=== PATIENT | male | born 1965 | race Caucasian/White ===

== ENCOUNTER 2024-07-11 03:43 | Inpatient (IN) | payer OTHER ==
[~2024-07-11] VITALS: Ht 193 cm; Wt 99.3 kg
[2024-07-11 04:42] LABS: Basophils # (auto) 0.1 10 ^3/uL (0-0.2); Basophils % (auto) 0.5 % (0.0-2.0); Eosinophils # (auto) 0 10 ^3/uL (0-0.8); Hematocrit 40.5 % (41.0-53.0); Hemoglobin 13.8 g/dL (13.5-17.5); Lymphocytes # (auto) 0.8 10 ^3/uL (0.4-5.4); Lymphocytes % (auto) 5.8 % (10.0-50.0); Mean Corpuscular Hemoglobin 31.5 pg (28.0-32.0); Mean Corpuscular Hgb Conc. 34.2 g/dL (32.0-36.0); Mean Corpuscular Volume 92.3 fL (80.0-100.0); Monocytes # (auto) 0.5 10 ^3/uL (0-1.3); Monocytes % (auto) 3.8 % (0.0-12.0); Neutrophils # (auto) 12.9 10 ^3/uL (1.6-8.6); Neutrophils % (auto) 89.9 % (37.0-80.0); Platelet Count (auto) 189 10^3/uL (140-450); Red Blood Cells 4.39 10^6/uL (4.5-5.90); Red Cell Distribution Width 13.1 % (11.8-14.3); White Blood Cell 14.4 10^3/uL (4.4-10.8)
[2024-07-11 04:51] LABS: Alanine Aminotransferase 23 U/L (7-40); Albumin 4.5 g/dL (3.2-4.8); Alkaline Phosphatase 67 U/L (46-116); Anion Gap 8 (5-15); Aspartate Aminotransferase 16 U/L (13-40); BUN/Creatinine Ratio 11.7 (10.0-20.0); Blood Urea Nitrogen 16 mg/dL (9-23); Calcium 10.1 mg/dL (8.7-10.4); Carbon Dioxide 27 mmol/L (20-31); Chloride 105 mmol/L (98-107); Lipase 30 U/L (12-53); Sodium 140 mmol/L (136-145); Total Protein 7.3 g/dL (5.7-8.2)
[2024-07-11 04:52] LABS: Bilirubin, Total 0.4 mg/dL (0.2-1.0); Glucose 151 mg/dL (74-106)
--- NOTE | 2024-07-11 06:27 | ED.PDOC ---
History of Present Illness HPI Comments 59 y/o M presents with spouse for c/o non-radiating, left-sided abdominal pain, nausea, and vomiting, today. Patient endorses on sudden and unprovoked onset of symptoms at around 2300, last night, that have been ongoing since. He comments on pain being sharp in quality and having no significant medical, surgical, or family history along with any recent ailments, sick contact, travel, or spoiled food intake. Patient denies any hematemesis, diarrhea, constipation, urinary symptoms, fever, chills, or other associated symptoms or modifiers at this time. Chief Complaint: Abdominal Pain Time Seen by MD: 06:15 Reviewed Notes: Nurses Notes, Medications, Allergies Allergies: Coded Allergies: NO KNOWN ALLERGIES (Unverified , 07/11/24) Information Source: Patient Mode of Arrival: Ambulatory Severity: Moderate Timing: Hours Duration: Since onset Prehospital treatment: None Past Medical History PAST MEDICAL HISTORY: Denies Surgical History: Denies all surgeries Family History Family History: Unknown Social History Smoker: Non-Smoker Alcohol: Denies ETOH Use Drugs: Denies Drug Use Lives In: Home All Other Systems: Reviewed and Negative (Comprehensive systems review obtained and negative except for what is stated in the HPI.) Physical Exam General Appearance: Moderate Distress HEENT: Normal ENT Inspection, Pharynx Normal, TMs Normal Neck: Full Range of Motion, Non-Tender, Normal, Normal Inspection Respiratory: Chest Non-Tender, Lungs Clear, No Accessory Muscle Use, No Respiratory Distress, Normal Breath Sounds Cardiovascular: No Edema, No JVD, No Murmur, No Gallop, Normal Peripheral Pulses, Regular Rate/Rhythm Breast Exam: Deferred Gastrointestinal: Diffuse Genitalia: Deferred Pelvic: Deferred Rectal: Deferred Extremities: No calf tenderness, Normal capillary refill, Normal inspection, Normal range of motion, Non-tender, No pedal edema Musculoskeletal : Apperance: Normal Neurologic: Alert, dairy equipment repairer II-XII nml as Tested, No Motor Deficits, Normal Affect, Normal Mood, No Sensory Deficits Cerebellar Function: NOT DONE Reflexes: NOT DONE Skin: Dry, Normal Color, Warm Peripheral Pulses: 3+ Radial (R), 3+ Radial (L) Lymphatic: No Adenopathy Was a procedure done? Was a procedure done?: No Differential Dx Considerations may include: gastritis, gastroenteritis, viral syndrome, spoiled food, colitis, diverticulitis, nephrolithiasis, among others X-Ray, Labs, Meds, VS Vital Signs Date Time Temp Pulse Resp B/P (MAP) Pulse Ox O2 Delivery O2 Flow Rate FiO2 07/11/24 14:29 73 18 121/67 (85) 97 07/11/24 14:24 74 16 138/74 (95) 98 07/11/24 14:19 84 15 154/64 (94) 98 07/11/24 14:14 87 14 143/71 (95) 96 07/11/24 14:09 97.3 89 14 146/75 (98) 96 97.3 07/11/24 14:09 89 14 96 Nasal Cannula 5.0 07/11/24 14:09 Nasal Cannula 5.0 07/11/24 10:56 68 16 135/83 (100) 97 07/11/24 09:08 57 16 155/71 07/11/24 07:58 59 18 145/62 (89) 98 07/11/24 07:58 59 18 145/62 07/11/24 04:00 98.9 60 20 118/79 (92) 97 98.9 Lab Test 07/11/24 07:20 07/11/24 07:00 07/11/24 04:25 Range/Units Lactic Acid Level 1.8 1.7 0.4-2.0 mmol/L Urine Color Light-yellow Yellow Urine Clarity Turbid H Clear Urine pH 8.0 5.0-9.0 Urine Specific [place] 1.024 1.001-1.035 Urine Protein Trace H Negative Urine Ketones Negative Negative Urine Blood 2+ H Negative /uL Urine Nitrite Negative Negative Urine Bilirubin Negative Negative Urine Urobilinogen Normal Negative mg/dL Urine Leukocyte Esterase Negative Negative /uL Urine RBC 213 0 - 3 /hpf Urine Microscopic WBC 5 H 0-3 /HPF Urine Squamous Epithelial Cells Few <5 /hpf Urine Bacteria None seen None Seen /hpf Urine Mucus Few None Seen Urine Glucose Normal Normal mg/dL White Blood Count 14.4 H 4.4-10.8 10^3/uL Red Blood Count 4.39 L 4.5-5.90 10^6/uL Hemoglobin 13.8 13.5-17.5 g/dL Hematocrit 40.5 L 41.0-53.0 % Mean Corpuscular Volume 92.3 80.0-100.0 fL Mean Corpuscular Hemoglobin 31.5 28.0-32.0 pg Mean Corpuscular Hemoglobin Concent 34.2 32.0-36.0 g/dL Red Cell Distribution Width 13.1 11.8-14.3 % Platelet Count 189 140-450 10^3/uL Mean Platelet Volume 8.4 6.9-10.8 fL Neutrophils (%) (Auto) 89.9 H 37.0-80.0 % Lymphocytes (%) (Auto) 5.8 L 10.0-50.0 % Monocytes (%) (Auto) 3.8 0.0-12.0 % Eosinophils (%) (Auto) 0.0 0.0-7.0 % Basophils (%) (Auto) 0.5 0.0-2.0 % Neutrophils # (Auto) 12.9 H 1.6-8.6 10 ^3/uL Lymphocytes # (Auto) 0.8 0.4-5.4 10 ^3/uL Monocytes # (Auto) 0.5 0-1.3 10 ^3/uL Eosinophils # (Auto) 0 0-0.8 10 ^3/uL Basophils # (Auto) 0.1 0-0.2 10 ^3/uL Nucleated Red Blood Cells 0.0 % Sodium Level 140 136-145 mmol/L Potassium Level 4.0 3.5-5.1 mmol/L Chloride Level 105 98-107 mmol/L Carbon Dioxide Level 27 20-31 mmol/L Anion Gap 8 5-15 Blood Urea Nitrogen 16 9-23 mg/dL Creatinine 1.37 H 0.700-1.30 mg/dL Glomerular Filtration Rate Calc 60 >90 mL/min BUN/Creatinine Ratio 11.7 10.0-20.0 Serum Glucose 151 H 74-106 mg/dL Calcium Level 10.1 8.7-10.4 mg/dL Total Bilirubin 0.4 0.2-1.0 mg/dL Aspartate Amino Transferase (AST) 16 13-40 U/L Alanine Aminotransferase (ALT) 23 7-40 U/L Alkaline Phosphatase 67 46-116 U/L Total Protein 7.3 5.7-8.2 g/dL Albumin 4.5 3.2-4.8 g/dL Lipase 30 12-53 U/L Current Medications Medications (Trade) Dose Ordered Sig/Don Route Start Time Stop Time Status Last Admin Morphine Sulfate 4 mg ONCE ONCE IV 07/11/24 06:30 07/11/24 06:31 DC 07/11/24 07:58 Ondansetron HCl (Zofran) 4 mg ONCE ONCE IV 07/11/24 06:30 07/11/24 06:31 DC 07/11/24 07:57 Sodium Chloride 1,000 ml @ 1,000 mls/hr Q1H ONCE IV 07/11/24 06:30 07/11/24 07:29 DC 07/11/24 07:55 Ceftriaxone Sodium 50 ml @ 100 mls/hr ONCE ONCE IV 07/11/24 07:00 07/11/24 07:29 DC 07/11/24 08:10 Metronidazole 100 ml @ 100 mls/hr ONCE ONCE IV 07/11/24 07:00 07/11/24 07:59 DC 07/11/24 09:12 Sodium Chloride 1,000 ml @ 1,000 mls/hr Q1H ONCE IV 07/11/24 07:00 07/11/24 07:59 DC 07/11/24 09:08 Hydromorphone HCl (Dilaudid Injection) 1 mg ONCE ONCE IV 07/11/24 08:45 07/11/24 08:47 DC 07/11/24 09:08 Patient alert. Complaining of abdominal pain. Vitals stable. Answering questions. Severe pain. Establish intravenous access. Was given fluids. WBC elevated. Was given morphine. Was given Zofran. Possible diverticulitis. Lipase within normal limits. Was given Rocephin. Was given Flagyl. Blood sugar elevated. Reviewed his history. Explained to the patient. Continue monitoring. Spoke with surgery. Time of 1ST Reevaluation: 17:31 Reevaluation 1ST: Unchanged Patient Education/Counseling: Diagnosis, Treatment Family Education/Counseling: Diagnosis, Treatment Additional Information Previous medical encounters reviewed: n/a The following tests were ordered, and results were reviewed by me: UA, lipase, lactic acid w/reflex, CMP, CBC Additional Information was gathered from interviewing the following independent historians: spouse I reviewed and agreed with the following test results read by other providers: n/a I discussed treatment and results with medical personnel and: Patient, spouse Departure 1 Departure Time of Disposition: 06:51 Impression: Primary Impression: Sepsis, unspecified organism Qualified Codes: A41.9 - Sepsis, unspecified organism Additional Impressions: Uncontrolled diabetes mellitus Qualified Codes: E13.65 - Other specified diabetes mellitus with hyperglycemia Acute appendicitis Qualified Codes: K35.80 - Unspecified acute appendicitis Disposition: ADMITTED INPATIENT Admit to: Med Surg Condition: Guarded Critical Care Note Critical Care Time?: Yes (90 min-critical care time only) Critical care comment: Continues to have abdominal pain monitor Stability Stability form required: No Heart Score Heart Score: Heart Score Response (Comments) Value History N/A 0 EKG N/A 0 Age N/A 0 Risk Factors N/A 0 Troponin N/A 0 Total 0 I personally scribed for THANG BADILLO MD ([email or web address]) on 07/11/24 at 06:27. Electronically submitted by Alfredo Bhagat ([email or web address]). THANG BADILLO MD Jul 11, 2024 06:27
[2024-07-11 07:25] LABS: Urine Bacteria None Seen /hpf (None Seen)
[2024-07-11 07:35] LABS: Urine Blood 2+ /uL (Negative); Urine Clarity Turbid (Clear); Urine Color Light-Yellow (Yellow); Urine Mucus FEW (None Seen); Urine Protein, UAD TRACE (Negative); Urine Specific Gravity 1.024 (1.001-1.035); Urine Squamous Epithelial Cell FEW /hpf (<5); Urine Urobilinogen Normal (Negative); Urine WBC 5 /HPF (0-3)
[2024-07-11] MEDS: SODIUM CHLORIDE 0.9% 1,000 ML IV ONE ×3 (07:55→16:40)
[2024-07-11] MEDS: ONDANSETRON HCL 4 MG/2 ML VIAL IV ONE (07:57)
[2024-07-11] MEDS: MORPHINE SULFATE 4 MG/ML SYR/VIAL IV ONE (07:58)
[2024-07-11] MEDS: cefTRIAXone 1GM/50ML D5W 50 ML IV ONE (08:10)
--- NOTE | 2024-07-11 08:45 | DVH ---
Exam: CT CT AB PEL WO CON-NO ORAL OR IV History: colitis Comparison Study: None available at time of dictation. TECHNIQUE: Multidetector CT of the abdomen was performed from lung bases to pubic symphysis. Imaging was performed without IV contrast. Axial, coronal and sagittal multiplanar reformats were obtained fr om the axial data set by the technologist. Radiation Dose Information: CT Dose: CTDI volume is 13.39 mGy. Dose-length product is 726.85 mGy*cm FINDINGS: Evaluation of solid organs is limited due to lack of intravenous contrast use. Findings: Lung Bases: No acute or significant lung base finding. Normal heart size. No pleural or pericardial effusion. Liver: The liver is normal in size. No focal lesions. Gallbladder and Biliary Tree:Gallstones are noted. Spleen: Unremarkable Pancreas: The pancreas is grossly normal in appearance. Adrenal Glands: Unremarkable Kidneys: Kidneys are grossly normal without calculi or hydronephrosis. Bladder: Grossly unremarkable for degree of distention. Bowel: The stomach is grossly normal in appearance. Small bowel and colon are normal in caliber and d istribution. Appendix dilated measuring up to 12mm with apendicolith. Ascites: Absent Lymphadenopathy: No mesenteric, retroperitoneal or periportal lymphadenopathy. Abdominal Wall and Mesentery: Unremarkable. Vasculature: The visualized abdominal aorta is normal in size and caliber. Evaluation of abdominal a nd pelvic vessels is limited due to lack of intravenous contrast. Pelvic Organs: Unremarkable Musculoskeletal: No aggressive focal bony lesions, acute fractures or dislocation. Soft tissues: Unremarkable IMPRESSION: Appendix dilated measuring up to 12mm with apendicolith. Findings consistent appendicitis. Gallstones are noted. Radiation optimization: All CT scans at this facility use at least one of these dose optimization joanne hniques: automated exposure control mA and/or kV adjustment per patient size (includes targeted exam s where dose is matched to clinical indication) or iterative reconstruction.
[2024-07-11] MEDS: HYDROMORPHONE HCL 1 MG/ML INJ IV ONE (09:08)
[2024-07-11] MEDS: metroNIDAZOLE 500MG/100ML 100 ML IV ONE (09:12)
--- NOTE | 2024-07-11 12:12 | DVHINCON2 ---
Date of service: Jul 11, 2024 Allergies: Coded Allergies: NO KNOWN ALLERGIES (Unverified , 07/11/24) Vital Signs Vital Signs Date Time Temp Pulse Resp B/P (MAP) Pulse Ox O2 Delivery O2 Flow Rate FiO2 07/11/24 10:56 68 16 135/83 (100) 97 07/11/24 04:00 98.9 98.9 Labs/Diagnostic Data Labs Test 07/11/24 07:20 07/11/24 07:00 07/11/24 04:25 Range/Units Lactic Acid Level 1.8 0.4-2.0 mmol/L Urine Color Light-yellow Yellow Urine Clarity Turbid H Clear Urine pH 8.0 5.0-9.0 Urine Specific [place] 1.024 1.001-1.035 Urine Protein Trace H Negative Urine Ketones Negative Negative Urine Blood 2+ H Negative /uL Urine Nitrite Negative Negative Urine Bilirubin Negative Negative Urine Urobilinogen Normal Negative mg/dL Urine Leukocyte Esterase Negative Negative /uL Urine RBC 213 0 - 3 /hpf Urine Microscopic WBC 5 H 0-3 /HPF Urine Squamous Epithelial Cells Few <5 /hpf Urine Bacteria None seen None Seen /hpf Urine Mucus Few None Seen Urine Glucose Normal Normal mg/dL White Blood Count 14.4 H 4.4-10.8 10^3/uL Red Blood Count 4.39 L 4.5-5.90 10^6/uL Hemoglobin 13.8 13.5-17.5 g/dL Hematocrit 40.5 L 41.0-53.0 % Mean Corpuscular Volume 92.3 80.0-100.0 fL Mean Corpuscular Hemoglobin 31.5 28.0-32.0 pg Mean Corpuscular Hemoglobin Concent 34.2 32.0-36.0 g/dL Red Cell Distribution Width 13.1 11.8-14.3 % Platelet Count 189 140-450 10^3/uL Mean Platelet Volume 8.4 6.9-10.8 fL Neutrophils (%) (Auto) 89.9 H 37.0-80.0 % Lymphocytes (%) (Auto) 5.8 L 10.0-50.0 % Monocytes (%) (Auto) 3.8 0.0-12.0 % Eosinophils (%) (Auto) 0.0 0.0-7.0 % Basophils (%) (Auto) 0.5 0.0-2.0 % Neutrophils # (Auto) 12.9 H 1.6-8.6 10 ^3/uL Lymphocytes # (Auto) 0.8 0.4-5.4 10 ^3/uL Monocytes # (Auto) 0.5 0-1.3 10 ^3/uL Eosinophils # (Auto) 0 0-0.8 10 ^3/uL Basophils # (Auto) 0.1 0-0.2 10 ^3/uL Nucleated Red Blood Cells 0.0 % Sodium Level 140 136-145 mmol/L Potassium Level 4.0 3.5-5.1 mmol/L Chloride Level 105 98-107 mmol/L Carbon Dioxide Level 27 20-31 mmol/L Anion Gap 8 5-15 Blood Urea Nitrogen 16 9-23 mg/dL Creatinine 1.37 H 0.700-1.30 mg/dL Glomerular Filtration Rate Calc 60 >90 mL/min BUN/Creatinine Ratio 11.7 10.0-20.0 Serum Glucose 151 H 74-106 mg/dL Calcium Level 10.1 8.7-10.4 mg/dL Total Bilirubin 0.4 0.2-1.0 mg/dL Aspartate Amino Transferase (AST) 16 13-40 U/L Alanine Aminotransferase (ALT) 23 7-40 U/L Alkaline Phosphatase 67 46-116 U/L Total Protein 7.3 5.7-8.2 g/dL Albumin 4.5 3.2-4.8 g/dL Lipase 30 12-53 U/L Assessment [id number] R/O AC APPENDICITIS CT SCAN CONFIRMING PROCEED WITH LAP/ OPEN APPENDECTOMY Plan discussed with: Patient KENNEY BROWNING MD Jul 11, 2024 12:12
--- NOTE | 2024-07-11 12:30 | DVHINCON2 ---
DATE OF CONSULTATION: 07/11/2024 HISTORY OF PRESENT ILLNESS: This patient is 59 years old, coming in with lower abdominal pain, mostly in the left side, very minimal on the right side. No right upper quadrant pain. There is history of nausea and vomiting, but no diarrhea, no constipation. No hematemesis or melena. No bleeding per rectum. PAST MEDICAL HISTORY: No diabetes or hypertension. PAST SURGICAL HISTORY: No significant surgical history. PHYSICAL EXAMINATION: VITAL SIGNS: Afebrile, stable signs. HEENT: With no evidence of pallor, cyanosis, or jaundice. NECK: Supple, nontender with no thyromegaly, lymphadenopathy. CHEST AND LUNGS: Clear. HEART: Within normal limits. ABDOMEN: Soft. He is tender in the lower abdomen, mostly in the left side, not on the right side. There is minimal rebound. EXTREMITIES: Unremarkable. NEUROLOGIC: Intact. CLINICAL IMPRESSION: Rule out acute appendicitis. CAT scan is confirming it. PLAN: To consider laparoscopic, possible open appendectomy. Benefits, risks discussed and a consent obtained. MD GIGI Campbell/YU/YVONNE TID: [id number] RECEIPT: [id number] cc: Jose Rivera
[2024-07-11] MEDS: SUCCINYLCHOLINE CHLORIDE 20 MG/ML 10ML VIAL IV ONE (12:52)
[2024-07-11] MEDS ORDERED: fentaNYL CITRATE 100 MCG/2 ML VL ONE ×2 (12:54→13:34)
[2024-07-11] MEDS ORDERED: PROPOFOL 10 MG/ML 20 ML IV ONE (12:54)
[2024-07-11] MEDS ORDERED: ePHEDrine SULFATE 50 MG/ML AMP ONE (13:26)
[2024-07-11] MEDS ORDERED: DexAMETHasone SOD PHOS 10MG/1ML VIAL INJ ONE (13:27)
[2024-07-11] MEDS ORDERED: ONDANSETRON HCL 4 MG/2 ML VIAL ONE (13:27)
[2024-07-11] MEDS ORDERED: SUGAMMADEX 200mg/2ml Vial (100MG/ML) IV ONE (13:47)
[2024-07-11] MEDS: BUPIVACAINE HCL 0.25% P/F 10 ML VIAL ONE (13:56)
[2024-07-11 14:09] VITALS: PULSE 89; RESP 14; O2SAT 96
--- NOTE | 2024-07-11 14:10 | DVHOP2 ---
Operative Report [id number] AC APPENDICITIS LAP APPENDECTOMY EBL 5 CC NO DRAINS ALEXA PROCEDURE WELL NO COMPLICATIONS KENNEY BROWNING MD Jul 11, 2024 14:10
--- NOTE | 2024-07-11 14:21 | DVHOP ---
DATE OF SURGERY: 07/11/2024 PREOPERATIVE DIAGNOSIS: Acute appendicitis. POSTOPERATIVE DIAGNOSIS: Acute appendicitis. PROCEDURE: Laparoscopic appendectomy. SURGEON: Jose Lund MD STEAMING CABINET TENDER: None. ANESTHESIA: General. ESTIMATED BLOOD LOSS: Close to 5 mL. DRAINS: No drains were used. COMPLICATIONS: No complications were encountered. DESCRIPTION OF PROCEDURE: The patient was prepped and draped in the usual sterile fashion in the supine position and a supraumbilical incision was applied, was taken down to the fascia. The Veress needle was introduced and CO2 insufflation was started to a pressure of 15 mmHg and the needle was withdrawn and replaced by the 12 mm trocar and a telescope was introduced and the appendix was found to be acutely inflamed with a fecalith at the base of the appendix. Two 5 mm ports were applied more inferiorly, one above the symphysis, the third midway between the upper two. The patient was placed in the Trendelenburg and right upper lateral position. The camera was moved to the lowermost 5 mm port. The upper 2 ports were used for surgery. The appendix was grasped using the [place] device and the mesoappendix was clipped at the base, divided distal to that using the LigaSure device. The base of the appendix was then cleared for transection using the Endo-JOHN stapling device. The appendix released in this fashion was retrieved from the supraumbilical wound in the EndoCatch bag without any complication. Hemostasis was secured. Irrigation fluid was removed, both from the right lower quadrant and the pelvis. EndoClose suture was used for the fascial closure of the supraumbilical wound. All the ports were withdrawn after all the CO2 had been let out and the patient was placed supine. The wounds were then brought together using 3-0 Monocryl suture in a subcuticular fashion. Surgical glue was applied. The patient tolerated the procedure well and was taken back to the recovery room in stable condition. MD GIGI Campbell/TOMMY TID: [id number] RECEIPT: [id number] cc: Ministerio Rivera
[2024-07-11] MEDS ORDERED: NITROGLYCERIN 0.4 MG SL TAB SL PRN (14:45)
[2024-07-11] MEDS ORDERED: HYDROcodone-ACET 5/325MG TAB PO PRN (15:15)
[2024-07-11] MEDS ORDERED: ACETAMINOPHEN 325 MG TAB PO PRN (15:15)
--- NOTE | 2024-07-11 15:18 | DVHHP2 ---
History of Present Illness Reason for Visit: Appendicitis History of Present Illness Jaylen Avalos is a 59-year-old male with no past medical history who presents to the facility for a lap appy done today. Upon examination patient states that the pain is 8/10 tight and constant. Has 3 vertical incisions with Dermabond in place. Patient also reports that he does not use home oxygen however currently on 2 L nasal cannula in the recovery room. Patient denies any chest pain, shortness of breath, fever, chills, lightheadedness, weakness, dizziness, nausea, vomiting, or diarrhea. Patient also reports that he does not smoke nor drink nor use illicit drugs. Past Surgical History: None Family History: None Smoke: No ALCOHOL: none Drugs: None Lives: with Family Domestic Violence: Neg Review of Systems Gastrointestinal: Abdominal Pain Allergies: Coded Allergies: NO KNOWN ALLERGIES (Unverified , 07/11/24) Medications Current Medications Medications Dose Ordered Sig/Don Route Start Time Stop Time Status Last Admin Dose Admin Nitroglycerin 0.4 mg Q5MINP PRN SL 07/11/24 14:45 Morphine Sulfate 2 mg Q30M PRN IV 07/11/24 14:45 Exam Vital Signs Vital Signs Date Time Temp Pulse Resp B/P (MAP) Pulse Ox O2 Delivery O2 Flow Rate FiO2 07/11/24 14:09 97.3 89 14 146/75 (98) 96 97.3 07/11/24 14:09 Nasal Cannula 5.0 General Appearance: Alert, Oriented X3, Cooperative, No acute distress HEENT: Atraumatic, PERRLA, EOMI, Mucous membr. moist/pink Respiratory: Clear to auscultation, Normal air movement Cardiovascular: Normal S1, Normal S2, No murmurs Abdominal: Normal bowel sounds, Soft Extremities: No clubbing, No cyanosis, No edema, Normal pulses, No tenderness/swelling Skin: No rashes, No breakdown, No significant lesion Neuro: Normal speech, Strength at 5/5 X4 ext, Normal tone, Sensation intact Psych/Mental Status: Mental status NL, Mood NL Labs/Xrays Labs Test 07/11/24 07:20 07/11/24 07:00 07/11/24 04:25 Range/Units Lactic Acid Level 1.8 0.4-2.0 mmol/L Urine Color Light-yellow Yellow Urine Clarity Turbid H Clear Urine pH 8.0 5.0-9.0 Urine Specific [place] 1.024 1.001-1.035 Urine Protein Trace H Negative Urine Ketones Negative Negative Urine Blood 2+ H Negative /uL Urine Nitrite Negative Negative Urine Bilirubin Negative Negative Urine Urobilinogen Normal Negative mg/dL Urine Leukocyte Esterase Negative Negative /uL Urine RBC 213 0 - 3 /hpf Urine Microscopic WBC 5 H 0-3 /HPF Urine Squamous Epithelial Cells Few <5 /hpf Urine Bacteria None seen None Seen /hpf Urine Mucus Few None Seen Urine Glucose Normal Normal mg/dL White Blood Count 14.4 H 4.4-10.8 10^3/uL Red Blood Count 4.39 L 4.5-5.90 10^6/uL Hemoglobin 13.8 13.5-17.5 g/dL Hematocrit 40.5 L 41.0-53.0 % Mean Corpuscular Volume 92.3 80.0-100.0 fL Mean Corpuscular Hemoglobin 31.5 28.0-32.0 pg Mean Corpuscular Hemoglobin Concent 34.2 32.0-36.0 g/dL Red Cell Distribution Width 13.1 11.8-14.3 % Platelet Count 189 140-450 10^3/uL Mean Platelet Volume 8.4 6.9-10.8 fL Neutrophils (%) (Auto) 89.9 H 37.0-80.0 % Lymphocytes (%) (Auto) 5.8 L 10.0-50.0 % Monocytes (%) (Auto) 3.8 0.0-12.0 % Eosinophils (%) (Auto) 0.0 0.0-7.0 % Basophils (%) (Auto) 0.5 0.0-2.0 % Neutrophils # (Auto) 12.9 H 1.6-8.6 10 ^3/uL Lymphocytes # (Auto) 0.8 0.4-5.4 10 ^3/uL Monocytes # (Auto) 0.5 0-1.3 10 ^3/uL Eosinophils # (Auto) 0 0-0.8 10 ^3/uL Basophils # (Auto) 0.1 0-0.2 10 ^3/uL Nucleated Red Blood Cells 0.0 % Sodium Level 140 136-145 mmol/L Potassium Level 4.0 3.5-5.1 mmol/L Chloride Level 105 98-107 mmol/L Carbon Dioxide Level 27 20-31 mmol/L Anion Gap 8 5-15 Blood Urea Nitrogen 16 9-23 mg/dL Creatinine 1.37 H 0.700-1.30 mg/dL Glomerular Filtration Rate Calc 60 >90 mL/min BUN/Creatinine Ratio 11.7 10.0-20.0 Serum Glucose 151 H 74-106 mg/dL Calcium Level 10.1 8.7-10.4 mg/dL Total Bilirubin 0.4 0.2-1.0 mg/dL Aspartate Amino Transferase (AST) 16 13-40 U/L Alanine Aminotransferase (ALT) 23 7-40 U/L Alkaline Phosphatase 67 46-116 U/L Total Protein 7.3 5.7-8.2 g/dL Albumin 4.5 3.2-4.8 g/dL Lipase 30 12-53 U/L Exam: CT CT AB PEL WO CON-NO ORAL OR IV History: colitis Comparison Study: None available at time of dictation. TECHNIQUE: Multidetector CT of the abdomen was performed from lung bases to pubic symphysis. Imaging was performed without IV contrast. Axial, coronal and sagittal multiplanar reformats were obtained from the axial data set by the technologist. Radiation Dose Information: CT Dose: CTDI volume is 13.39 mGy. Dose-length product is 726.85 mGy*cm FINDINGS: Evaluation of solid organs is limited due to lack of intravenous contrast use. Findings: Lung Bases: No acute or significant lung base finding. Normal heart size. No pleural or pericardial effusion. Liver: The liver is normal in size. No focal lesions. Gallbladder and Biliary Tree:Gallstones are noted. Spleen: Unremarkable Pancreas: The pancreas is grossly normal in appearance. Adrenal Glands: Unremarkable Kidneys: Kidneys are grossly normal without calculi or hydronephrosis. Bladder: Grossly unremarkable for degree of distention. Bowel: The stomach is grossly normal in appearance. Small bowel and colon are normal in caliber and distribution. Appendix dilated measuring up to 12mm with apendicolith. Ascites: Absent Lymphadenopathy: No mesenteric, retroperitoneal or periportal lymphadenopathy. Abdominal Wall and Mesentery: Unremarkable. Vasculature: The visualized abdominal aorta is normal in size and caliber. Evaluation of abdominal and pelvic vessels is limited due to lack of intravenous contrast. Pelvic Organs: Unremarkable Musculoskeletal: No aggressive focal bony lesions, acute fractures or disloca tion. Soft tissues: Unremarkable IMPRESSION: Appendix dilated measuring up to 12mm with apendicolith. Findings consistent appendicitis. Gallstones are noted. Assessment/Plan Assessment/Plan Assessment Appendicitis Laparoscopic appendectomy Acute respiratory failure Plan Med surge admit Antiemetics Pain management Supportive oxygen Per General surge diet DVT prophylaxis-SCDs PUD prophylaxis-Protonix Per patient does not take home medications Discussed plan of care with patient and nurse Plan discussed with: Patient Date of Service: Jul 11, 2024 Billing Provider: CANDACE GIPSON Common Visit Codes: 40329-[id number] INP/OBS CARE (HIGH) CANDACE GIPSON Jul 11, 2024 15:18
[2024-07-11] MEDS: MORPHINE SULFATE INJ 2 MG/ml SYRG IV PRN ×2 (15:29→22:55)
[2024-07-11] MEDS: PANTOPRAZOLE 40 MG/10 ML VIAL INJ IV SCH (17:00)
[2024-07-11 17:05] VITALS: BP 129/69; PULSE 74; RESP 18; TEMP 97.9; O2SAT 92
[2024-07-11 17:14] VITALS: BP 127/62; PULSE 72; RESP 16; TEMP 97.8; O2SAT 94
[2024-07-11 20:00] VITALS: PULSE 69
[2024-07-11 21:00] VITALS: BP 126/66; PULSE 69; RESP 18; TEMP 98.1; O2SAT 93
[2024-07-12] VITALS (8 sets, daily range): BP systolic 106–138; BP diastolic 53–79; PULSE 55–72; RESP 16–19; TEMP 97.9–98.4; O2SAT 93–99
[2024-07-12 06:57] LABS: Basophils # (auto) 0 10 ^3/uL (0-0.2); Basophils % (auto) 0.2 % (0.0-2.0); Eosinophils # (auto) 0 10 ^3/uL (0-0.8); Hematocrit 34.7 % (41.0-53.0); Hemoglobin 11.9 g/dL (13.5-17.5); Lymphocytes # (auto) 1.6 10 ^3/uL (0.4-5.4); Lymphocytes % (auto) 13.7 % (10.0-50.0); Mean Corpuscular Hemoglobin 31.8 pg (28.0-32.0); Mean Corpuscular Hgb Conc. 34.2 g/dL (32.0-36.0); Monocytes # (auto) 0.8 10 ^3/uL (0-1.3); Neutrophils # (auto) 9.3 10 ^3/uL (1.6-8.6); Neutrophils % (auto) 79.1 % (37.0-80.0); Platelet Count (auto) 160 10^3/uL (140-450); Red Blood Cells 3.73 10^6/uL (4.5-5.90); White Blood Cell 11.8 10^3/uL (4.4-10.8)
[2024-07-12 07:12] LABS: Alanine Aminotransferase 17 U/L (7-40); Albumin 3.6 g/dL (3.2-4.8); Alkaline Phosphatase 55 U/L (46-116); Anion Gap 9 (5-15); Aspartate Aminotransferase 13 U/L (13-40); Blood Urea Nitrogen 11 mg/dL (9-23); Calcium 9.2 mg/dL (8.7-10.4); Carbon Dioxide 25 mmol/L (20-31); Sodium 142 mmol/L (136-145); Total Protein 5.8 g/dL (5.7-8.2)
[2024-07-12 07:13] LABS: Bilirubin, Total 0.5 mg/dL (0.2-1.0)
[2024-07-12 07:15] LABS: Chloride 108 mmol/L (98-107); Glucose 116 mg/dL (74-106)
--- NOTE | 2024-07-12 12:29 | DVHPN2 ---
Gastrointestinal: Abdominal Pain Objective Vitals Vital Signs Date Time Temp Pulse Resp B/P (MAP) Pulse Ox O2 Delivery O2 Flow Rate FiO2 07/12/24 09:13 63 18 115/67 07/12/24 08:30 98.1 97 98.1 07/12/24 08:00 Room Air* 0 21 Intake/Output Intake and Output 07/12/24 07:00 Intake Total 620 ml Output Total 600 ml Balance 20 ml Intake Oral 520 ml IV Total 100 ml Output Urine Total 600 ml # Voids 1 Medications Current Medications Medications Dose Ordered Sig/Don Route Start Time Stop Time Status Last Admin Dose Admin Nitroglycerin 0.4 mg Q5MINP PRN SL 07/11/24 14:45 Morphine Sulfate 2 mg Q30M PRN IV 07/11/24 14:45 07/12/24 09:13 2 MG Acetaminophen/ Hydrocodone Bitart 1 tab Q4HP PRN PO 07/11/24 15:15 Ondansetron HCl 4 mg Q4HP PRN IV 07/11/24 15:15 Acetaminophen 650 mg Q6HP PRN PO 07/11/24 15:15 Morphine Sulfate 2 mg Q4HPRN PRN IV 07/11/24 15:15 07/11/24 22:55 2 MG Pantoprazole Sodium 40 mg DAILY IV 07/11/24 15:30 07/12/24 09:12 40 MG Laboratory Results Laboratory Tests 07/12/24 05:46 Chemistry Test 07/12/24 05:46 Albumin 3.6 g/dL (3.2-4.8) Calcium Level 9.2 mg/dL (8.7-10.4) Total Protein 5.8 g/dL (5.7-8.2) LFT Test 07/12/24 05:46 Alanine Aminotransferase (ALT) 17 U/L (7-40) Alkaline Phosphatase 55 U/L (46-116) Aspartate Amino Transferase (AST) 13 U/L (13-40) Total Bilirubin 0.5 mg/dL (0.2-1.0) Urinalysis Test 07/11/24 07:00 Urine Color Light-yellow (Yellow) Urine Clarity Turbid (Clear) H Urine pH 8.0 (5.0-9.0) Urine Specific [place] 1.024 (1.001-1.035) Urine Protein Trace (Negative) H Urine Ketones Negative (Negative) Urine Blood 2+ /uL (Negative) H Urine Nitrite Negative (Negative) Urine Bilirubin Negative (Negative) Urine Urobilinogen Normal mg/dL (Negative) Urine Leukocyte Esterase Negative /uL (Negative) Urine RBC 213 /hpf (0 - 3) Urine Microscopic WBC 5 /HPF (0-3) H Urine Squamous Epithelial Cells Few /hpf (<5) Urine Bacteria None seen /hpf (None Seen) Urine Mucus Few (None Seen) Urine Glucose Normal mg/dL (Normal) Microbiology Microbiology Date/Time Source Procedure Growth Status 07/11/24 07:20 Blood Blood Culture - Preliminary NO GROWTH AFTER 24 HOURS OF INCUBATION. Resulted DARYL HOLT MD Jul 12, 2024 12:29
[2024-07-12] MEDS: ONDANSETRON HCL 4 MG/2 ML VIAL IV PRN (18:39)
[2024-07-12] MEDS ORDERED: SEVOFLURANE 250 ML SOL IN ONE (21:16)
[2024-07-13 01:00] VITALS: BP 122/69; PULSE 65; RESP 19; TEMP 97.7; O2SAT 94
[2024-07-13 08:00] VITALS: PULSE 68; RESP 18; O2SAT 96
[2024-07-13 09:00] VITALS: BP 138/86; PULSE 60; RESP 15; TEMP 98.5; O2SAT 96
--- NOTE | 2024-07-13 12:38 | DVHPN2 ---
Gastrointestinal: Abdominal Pain Objective Vitals Vital Signs Date Time Temp Pulse Resp B/P (MAP) Pulse Ox O2 Delivery O2 Flow Rate FiO2 07/13/24 01:00 97.7 65 19 122/69 (86) 94 97.7 07/12/24 20:00 Room Air* 0 21 Intake/Output Intake and Output 07/13/24 07:00 Intake Total 1740 ml Balance 1740 ml Intake Oral 1740 ml # Voids 6 # Bowel Movements 1 Medications Current Medications Medications Dose Ordered Sig/Don Route Start Time Stop Time Status Last Admin Dose Admin Nitroglycerin 0.4 mg Q5MINP PRN SL 07/11/24 14:45 Morphine Sulfate 2 mg Q30M PRN IV 07/11/24 14:45 07/12/24 23:27 2 MG Acetaminophen/ Hydrocodone Bitart 1 tab Q4HP PRN PO 07/11/24 15:15 Ondansetron HCl 4 mg Q4HP PRN IV 07/11/24 15:15 07/12/24 18:39 4 MG Acetaminophen 650 mg Q6HP PRN PO 07/11/24 15:15 Morphine Sulfate 2 mg Q4HPRN PRN IV 07/11/24 15:15 07/12/24 18:37 2 MG Pantoprazole Sodium 40 mg DAILY IV 07/11/24 15:30 07/13/24 11:11 40 MG Laboratory Results Laboratory Tests 07/12/24 05:46 Urinalysis Test 07/11/24 07:00 Urine Color Light-yellow (Yellow) Urine Clarity Turbid (Clear) H Urine pH 8.0 (5.0-9.0) Urine Specific [place] 1.024 (1.001-1.035) Urine Protein Trace (Negative) H Urine Ketones Negative (Negative) Urine Blood 2+ /uL (Negative) H Urine Nitrite Negative (Negative) Urine Bilirubin Negative (Negative) Urine Urobilinogen Normal mg/dL (Negative) Urine Leukocyte Esterase Negative /uL (Negative) Urine RBC 213 /hpf (0 - 3) Urine Microscopic WBC 5 /HPF (0-3) H Urine Squamous Epithelial Cells Few /hpf (<5) Urine Bacteria None seen /hpf (None Seen) Urine Mucus Few (None Seen) Urine Glucose Normal mg/dL (Normal) Microbiology Microbiology Date/Time Source Procedure Growth Status 07/11/24 07:20 Blood Blood Culture - Preliminary NO GROWTH AFTER 48 HOURS OF INCUBATION. Resulted DARYL HOLT MD Jul 13, 2024 12:38
--- NOTE | 2024-07-13 12:55 | DVHDS2 ---
Discharge Summary Date of Admission Jul 11, 2024 at 14:32 Labs/Diagnostic Data: Laboratory Results Test 07/12/24 05:46 07/11/24 07:20 07/11/24 07:00 07/11/24 04:25 White Blood Count 11.8 10^3/uL (4.4-10.8) Red Blood Count 3.73 10^6/uL (4.5-5.90) Hemoglobin 11.9 g/dL (13.5-17.5) Hematocrit 34.7 % (41.0-53.0) Mean Corpuscular Volume 93.0 fL (80.0-100.0) Mean Corpuscular Hemoglobin 31.8 pg (28.0-32.0) Mean Corpuscular Hemoglobin Concent 34.2 g/dL (32.0-36.0) Red Cell Distribution Width 13.0 % (11.8-14.3) Platelet Count 160 10^3/uL (140-450) Mean Platelet Volume 8.6 fL (6.9-10.8) Neutrophils (%) (Auto) 79.1 % (37.0-80.0) Lymphocytes (%) (Auto) 13.7 % (10.0-50.0) Monocytes (%) (Auto) 7.0 % (0.0-12.0) Eosinophils (%) (Auto) 0.0 % (0.0-7.0) Basophils (%) (Auto) 0.2 % (0.0-2.0) Neutrophils # (Auto) 9.3 10 ^3/uL (1.6-8.6) Lymphocytes # (Auto) 1.6 10 ^3/uL (0.4-5.4) Monocytes # (Auto) 0.8 10 ^3/uL (0-1.3) Eosinophils # (Auto) 0 10 ^3/uL (0-0.8) Basophils # (Auto) 0 10 ^3/uL (0-0.2) Nucleated Red Blood Cells 0.0 % Sodium Level 142 mmol/L (136-145) Potassium Level 4.0 mmol/L (3.5-5.1) Chloride Level 108 mmol/L (98-107) Carbon Dioxide Level 25 mmol/L (20-31) Anion Gap 9 (5-15) Blood Urea Nitrogen 11 mg/dL (9-23) Creatinine 1.00 mg/dL (0.700-1.30) Glomerular Filtration Rate Calc 87 mL/min (>90) BUN/Creatinine Ratio 11.0 (10.0-20.0) Serum Glucose 116 mg/dL (74-106) Calcium Level 9.2 mg/dL (8.7-10.4) Total Bilirubin 0.5 mg/dL (0.2-1.0) Aspartate Amino Transferase (AST) 13 U/L (13-40) Alanine Aminotransferase (ALT) 17 U/L (7-40) Alkaline Phosphatase 55 U/L (46-116) Total Protein 5.8 g/dL (5.7-8.2) Albumin 3.6 g/dL (3.2-4.8) Lactic Acid Level 1.8 mmol/L (0.4-2.0) Urine Color Light-yellow (Yellow) Urine Clarity Turbid (Clear) Urine pH 8.0 (5.0-9.0) Urine Specific [place] 1.024 (1.001-1.035) Urine Protein Trace (Negative) Urine Ketones Negative (Negative) Urine Blood 2+ /uL (Negative) Urine Nitrite Negative (Negative) Urine Bilirubin Negative (Negative) Urine Urobilinogen Normal mg/dL (Negative) Urine Leukocyte Esterase Negative /uL (Negative) Urine RBC 213 /hpf (0 - 3) Urine Microscopic WBC 5 /HPF (0-3) Urine Squamous Epithelial Cells Few /hpf (<5) Urine Bacteria None seen /hpf (None Seen) Urine Mucus Few (None Seen) Urine Glucose Normal mg/dL (Normal) Lipase 30 U/L (12-53) Other Laboratory Tests 07/12/24 05:46 Discharge Statement: "Patient was advised to return to the ER or call 911 if any headaches, dizziness, shortness of breath, chest pain, abdominal pain, bleeding, fevers, or worsening of medical condition. Patient was counseled about treatment plan, medications, possible side effects, patientverbalized understanding. All questions were answered to the best of my ability. This discharge took greater then 30 minutes in planning, reviewing documentation, counseling the patient, and discussing with other team members." ASSESSMENT ASSESSMENT Assessment DARYL HOLT MD Jul 13, 2024 12:55
[2024-07-13] MEDS ORDERED: HYDR-4902 PO (12:56)
[2024-07-13] MEDS ORDERED: LEVO500T91 PO (12:56)
[2024-07-13 13:00] VITALS: BP 134/83; PULSE 65; RESP 16; TEMP 97.9; O2SAT 95
--- NOTE | 2024-07-13 14:16 | DVHPN2 ---
Progress Note Date Seen: Jul 13, 2024 Medical Necessity Reason Pt with a Central, PICC or Fol: No Objective vital signs Vital Sign Date Time Temp Pulse Resp B/P (MAP) Pulse Ox O2 Delivery O2 Flow Rate FiO2 07/13/24 01:00 97.7 65 19 122/69 (86) 94 97.7 07/12/24 20:00 Room Air* 0 21 Total Intake and Output 07/12/24 07/12/24 07/13/24 15:00 23:00 07:00 Intake Total 120 ml 720 ml 900 ml Balance 120 ml 720 ml 900 ml medications Current Medications Medications Dose Ordered Sig/Don Route Start Time Stop Time Status Last Admin Dose Admin Nitroglycerin 0.4 mg Q5MINP PRN SL 07/11/24 14:45 Morphine Sulfate 2 mg Q30M PRN IV 07/11/24 14:45 07/12/24 23:27 2 MG Acetaminophen/ Hydrocodone Bitart 1 tab Q4HP PRN PO 07/11/24 15:15 Ondansetron HCl 4 mg Q4HP PRN IV 07/11/24 15:15 07/12/24 18:39 4 MG Acetaminophen 650 mg Q6HP PRN PO 07/11/24 15:15 Morphine Sulfate 2 mg Q4HPRN PRN IV 07/11/24 15:15 07/12/24 18:37 2 MG Pantoprazole Sodium 40 mg DAILY IV 07/11/24 15:30 07/13/24 11:11 40 MG laboratory and microbiology Laboratory Tests 07/12/24 05:46 Test 07/12/24 05:46 Range/Units Serum Glucose 116 H 74-106 mg/dL Microbiology Date/Time Source Procedure Growth Status 07/11/24 07:20 Blood Blood Culture - Preliminary NO GROWTH AFTER 48 HOURS OF INCUBATION. Resulted Problem List/Assessment/Plan Problem List/Assessment/Plan AFEBRILE VSS ABD SOFT WOUNDS HEALING ALEXA DIET NO COMPLICATIONS CLEARED FOR DISCHARGE INSTRUCTIONS RE DIET ACTIVITY FUP GIVEN Plan discussed with: Other My Orders My Orders Orders - KENNEY BROWNING MD Procedure Category Date Status Time Soft Diet DIET 07/13/24 Transmitted Breakfast KENNEY BROWNING MD Jul 13, 2024 14:16
[2024-07-13 15:11] VITALS: BP 132/80; PULSE 65; RESP 16; TEMP 97.9; O2SAT 96
== END 2024-07-13 16:45 | disposition home or self-care (01) | DRG 853 ==
LOC: ER 03:43 → OVERFLOW 14:32 → WEST WING 15:38
PROVIDERS: ADMIT Internal Medicine; ATTEND Internal Medicine
PROC: 0DTJ4ZZ Resection of Appendix, Percutaneous Endoscopic Approach (ICD-10-PCS; principal; 2024-07-11 13:11)
DX: A41.9 Sepsis, unspecified organism (principal); J96.00 Acute respiratory failure, unspecified whether with hypoxia or hypercapnia; K35.80 Unspecified acute appendicitis; E11.65 Type 2 diabetes mellitus with hyperglycemia; K38.1 Appendicular concretions
CPT/HCPCS: 36415; 74176; 80053; 81001; 83605; 83690; 85025; 87040; 96365; 96367; 96375; 99291; 99292; G0378; J0330; J1100; J2405; J2470; J2704; J3490